=== PATIENT | female | born 1985 | race Two or more races ===

== ENCOUNTER 2016-06-23 22:06 | Emergency (ER) | payer SELFPAY ==
[2016-06-24 00:04] LABS: APPEARANCE HAZY (CLEAR); BILIRUBIN NEGATIVE (NEGATIVE); COLOR YELLOW (YELLOW); GLUCOSE NEGATIVE (NEGATIVE); HCG URINE NEGATIVE (NEGATIVE); KETONE NEGATIVE (NEGATIVE); LEUKOCYTE ESTERASE 1+ (NEGATIVE); NITRITE NEGATIVE (NEGATIVE); PROTEIN NEGATIVE (NEGATIVE); UROBILINOGEN NORMAL (NORMAL)
[2016-06-24 00:11] LABS: BACTERIA MANY /hpf (NONE SEEN); GRANULAR CAST RARE /lpf (NONE SEEN); HYALINE CAST OCC /lpf (NONE SEEN); RED CELLS - URINE 0-5 /hpf (0-5); WHITE CELLS - URINE 0-5 /hpf (0-5)
[2016-06-24 00:12] LABS: AMORPHOUS SEDIMENT <1+ /lpf (NONE SEEN)
== END 2016-06-24 01:25 | disposition home or self-care (01) ==
LOC: D.ER 22:06
PROVIDERS: Nurse Practitioner Family
DX: N64.4 Mastodynia (principal)